=== PATIENT | male | born 1995 | race Two or more races ===

== ENCOUNTER 2024-07-29 13:22 | Emergency (ER) | payer OTHER ==
[~2024-07-29] VITALS: Ht 154.9 cm; Wt 100.0 kg
[2024-07-29 13:59] LABS: Urine Bacteria None Seen /hpf (None Seen)
--- NOTE | 2024-07-29 14:02 | ED.PDOC ---
Psychiatric HPI Comments HPI: 29Y M who presents to the ED via EMS for chief complaint of suicidal ideations. Per EMS, pt approx 30 minutes prior to ED arrival states he took 10 x 200 mg ibuprofen pills in attempt to commit suicide after argument with spouse. Pt states he has had thoughts in past to harm himself by hanging or cutting throat but states he has never prior acted on those thoughts. Pt now in the ED, denies any active suicidal or homicidal ideations. Pt denies any past psychiatric history. Pt denies any other symptoms at this time. poison control has been contacted and they recommended the following: OBTAIN BASIC LABS : -ETOH,SALICYLATE,UDS,BMP,TYLENOL 6 HOUR OBSERVATION FOR GI SYMPTOMS REEAT LABS IN 4 HOURS IF NEEDED Vitals: Temp:98.4 F Heart rate: 82 RR: 16 BP:127/70 02 sat: 100 % on room air PMH: DENIES PSH: DENIES Social history: DENIES tobacco use, endorses ETOH use, DENIES drug use Meds: DENIES Allergies: DENIES HPI: Poor Historian. Past Medcial History: Past Surgical History: REVIEW OF SYSTEMS: CONSTITUTIONAL: Denies acute: fever, diaphoresis, chills, HEAD: Denies acute: headache, photophobia Eyes: Denies acute: Double vision, vision loss, eye pain, eye discharge. EARS: Denies acute: tinnitus, hearing loss, ear discharge, ear pain, THROAT: Denies acute: sore throat, swelling, difficulty swallowing , pain with swallowing, change in voice. NECK: Denies acute: neck pain, neck swelling, stiff neck. HEART: Denies acute : chest pain, palpitations, LUNGS: Denies acute: SOB, wheezing, cough, hemoptysis ABDOMEN: Denies acute: abdominal pain, Nausea, Vomiting, diarrhea, melena , hematemesis, hematochezia SKIN: Denies acute: rash, redness, lesions, itchiness. EXTREMITIES: Denies acute: calf pain, numbness, tingling, weakness, denies pain in extremity. Denies acute: Low back pain. Neuro: Denies acute: focal neurological deficit, motor or sensory focal neurological deficit, tremors, seizure like activity, confusion, dizziness, change in mental status, loss of bowel or bladder function, cauda equina like symptoms. : Denies acute: dysuria, hematuria, flank pain, increase in urinary frequency. PSYCH: Denies acute: hallucination, , homicidal ideation. PHYSICAL EXAM: General: no acute distress, awake and alert. Head: normocephalic, atraumatic. Neck: supple, trachea is midline, no swelling. Throat: Normal phonation. Eyes:, no erythema, no purulent discharge, no proptosis, no icterus. Heart: regular rate, regular rhythm, no significant murmur appreciated. Lungs: no apparent respiratory distress, Able to speak in full sentences. No wheezing, no rhonchi, no crackles. No stridors Clear to auscultation bilaterally. Abdomen: non tender to palpation, non distended, soft, no guarding, no rebound, + bowel sounds. Neuro: Awake, Alert, oriented to name, self, situation, follows commands GCS=15. Speech is normal. Skin: no petechia, no purpura, no cyanosis, non-pale, not jaundice. Lower extremities: --no - Pitting edema no deformity, no focal swelling, no calf TTP. Makes eye contact. moves all four extremities. Face: no apparent facial droop. Chief Complaint: Suicidal Time Seen by MD: 14:01 Primary Care Provider: JANEL Reviewed Notes: Nurses Notes, Senior Environmental Practice Leader Notes, Medications Information Source: Patient Mode of Arrival: EMS Past Medical History PAST MEDICAL HISTORY: Denies Surgical History: Denies all surgeries Family History Family History: Reviewed,noncontributory to illness Social History Smoker: Non-Smoker Alcohol: Denies ETOH Use Drugs: Denies Drug Use Lives In: Home Was a procedure done? Was a procedure done?: No Psych Differential Dx Psych. Differential Dx: Anxiety, Bipolar Disorder, Depression, Hopeless, Sc hizoprenia, Suicidal OD Differential Dx: Alcohol Abuse Suicidal Differential Dx: Homicidal, Substance Abuse X-Ray, Labs, Meds, VS Vital Signs Date Time Temp Pulse Resp B/P (MAP) Pulse Ox O2 Delivery O2 Flow Rate FiO2 07/29/24 18:35 98.0 90 16 124/77 (93) 100 98.0 07/29/24 18:34 90 16 100 Room Air* 0 21 07/29/24 14:57 88 07/29/24 13:28 98.4 82 16 127/70 (89) 100 Lab Test 07/29/24 14:54 07/29/24 13:58 07/29/24 13:56 Range/Units Troponin I High Sensitivity < 3 L < 3 L </=54 ng/L Urine Color Yellow Yellow Urine Clarity Clear Clear Urine pH 6.0 5.0-9.0 Urine Specific [place] 1.033 1.001-1.035 Urine Protein Trace H Negative Urine Ketones Negative Negative Urine Blood Negative Negative /uL Urine Nitrite Negative Negative Urine Bilirubin Negative Negative Urine Urobilinogen Normal Negative mg/dL Urine Leukocyte Esterase Negative Negative /uL Urine RBC 1 0 - 3 /hpf Urine WBC 2 0 - 3 /hpf Urine Squamous Epithelial Cells Few <5 /hpf Urine Bacteria None seen None Seen /hpf Urine Mucus Few None Seen Urine Glucose Normal Normal mg/dL Urine Opiates Screen Neg NEGATIVE Urine Fentanyl Screen Neg NEGATIVE Urine Barbiturates Screen Neg NEGATIVE Urine Phencyclidine Screen Neg NEGATIVE Urine Amphetamines Screen Neg NEGATIVE Urine Benzodiazepines Screen Neg NEGATIVE Urine Cocaine Screen Neg NEGATIVE Urine Cannabinoids Screen Neg NEGATIVE White Blood Count 6.4 4.4-10.8 10^3/uL Red Blood Count 5.55 4.5-5.90 10^6/uL Hemoglobin 17.1 13.5-17.5 g/dL Hematocrit 48.5 41.0-53.0 % Mean Corpuscular Volume 87.3 80.0-100.0 fL Mean Corpuscular Hemoglobin 30.8 28.0-32.0 pg Mean Corpuscular Hemoglobin Concent 35.3 32.0-36.0 g/dL Red Cell Distribution Width 13.3 11.8-14.3 % Platelet Count 214 140-450 10^3/uL Mean Platelet Volume 7.7 6.9-10.8 fL Neutrophils (%) (Auto) 73.3 37.0-80.0 % Lymphocytes (%) (Auto) 17.5 10.0-50.0 % Monocytes (%) (Auto) 4.7 0.0-12.0 % Eosinophils (%) (Auto) 4.0 0.0-7.0 % Basophils (%) (Auto) 0.5 0.0-2.0 % Neutrophils # (Auto) 4.7 1.6-8.6 10 ^3/uL Lymphocytes # (Auto) 1.1 0.4-5.4 10 ^3/uL Monocytes # (Auto) 0.3 0-1.3 10 ^3/uL Eosinophils # (Auto) 0.3 0-0.8 10 ^3/uL Basophils # (Auto) 0 0-0.2 10 ^3/uL Nucleated Red Blood Cells 0.1 % Sodium Level 139 136-145 mmol/L Potassium Level 4.1 3.5-5.1 mmol/L Chloride Level 106 98-107 mmol/L Carbon Dioxide Level 30 20-31 mmol/L Anion Gap 3 L 5-15 Blood Urea Nitrogen 16 9-23 mg/dL Creatinine 1.14 0.700-1.30 mg/dL Glomerular Filtration Rate Calc 88 >90 mL/min BUN/Creatinine Ratio 14.0 10.0-20.0 Serum Glucose 99 74-106 mg/dL Lactic Acid Level 1.1 0.4-2.0 mmol/L Calcium Level 9.9 8.7-10.4 mg/dL Total Bilirubin 0.5 0.2-1.0 mg/dL Aspartate Amino Transferase (AST) 15 13-40 U/L Alanine Aminotransferase (ALT) 28 7-40 U/L Alkaline Phosphatase 84 46-116 U/L Total Protein 8.1 5.7-8.2 g/dL Albumin 4.7 3.2-4.8 g/dL Salicylates Level < 3.0 -30 mg/dL Acetaminophen Level < 2.0 L 10.0-20.0 UG/ML Current Medications Medications (Trade) Dose Ordered Sig/Mauricio Route Start Time Stop Time Status Last Admin Sodium Chloride 1,000 ml @ 1,000 mls/hr Q1H ONCE IV 07/29/24 13:45 07/29/24 14:44 DC 07/29/24 16:44 Pantoprazole Sodium (Protonix) 40 mg ONCE ONCE IV 07/29/24 14:30 07/29/24 14:32 DC 07/29/24 16:44 Time of 1ST Reevaluation: 14:18 (poison control has been contacted and they recommended OBTAIN BASIC LABS :-ETOH,SALICYLATE,UDS,BMP,TYLENOL6 HOUR OBSERVATION FOR GI SYMPTOMSREEAT LABS IN 4 HOURS IF NEEDED) Reevaluation 1ST: Unchanged Time of 2ND Reevaluation: 14:41 (Patient denies any complaints. Patient has been medically cleared. Still waiting for social service technician and tele psych to evaluate the patient.) Reevaluation 2ND: Resolved Time of 3RD Reevaluation: 16:13 (Case was discussed on the phone with the psychiatrist who evaluated the patient is in the camera. He diagnosed the patient with adjustment disorder with depressive node. He said there is no need for psychiatric hold and he recommends discharging the patient home. Please see Dr. Chavez's consultation instructions.) Reevaluation 3RD: Improved Patient Education/Counseling: Diagnosis, Treatment Family Education/Counseling: No Family Present Comments Patient presented with the above HPI.--SI and overdose----workup was initiated. patient was found with the above mentioned diagnosis. Poison control was consulted Patient was given: Fluids and Protonix. Patient ED course and VS have been stabilized. Patient has been reassessed in the ED and remained in a stable condition. Pertinent incidental findings were discussed with the patient and/or family. Patient/family voices understanding and is agreeable with plan. Patient has been observed in the ED adequate length of time to insure improvemen t/stability. Tele psych evaluated the patient. Please see their consultation notes. They recommend discharging the patient home. patient was discharged home in a stable condition. Patient denies any symptoms. All the reports of any imaging studies that were ordered by myself were reviewed by myself. Departure 1 Departure Time of Disposition: 14:30 Impression: Primary Impression: Suicide attempt Additional Impressions: Ibuprofen overdose Adjustment disorder with depressed mood Disposition: 01 HOME / SELF CARE / HOMELESS Admit to: Tele Condition: Stable Additional Instructions: Additional discharge instructions: You MUST follow-up with your primary care/family doctor in 1 to 2 days. If you are unable to see your primary care/family doctor, please return to our emergency room for re-assessment and re-evaluation in 1 to 2 days. Return to the emergency room here in our facility or to the nearest ER [facility] if your symptoms change or worsen. CONSULTATIONS: you MUST Follow-up for consultation as soon as possible with: DrDina-psychology/therapy/psychiatry in 1-2 days. Please call for appointment. You MUST call the consultants office yourself to make an appointment. You may need to arrange that through your insurance and/or your primary/family doctor. If you are unable to see the strategy planning consultant in 1 to 2 days, you must return to our emergency room (or any other ER of your choice) for re-assessment and re- evaluation. Adequate fluid hydration. Please see discharge instructions given to the patient by the psychiatrist. Discharged With: Self Critical Care Note Critical Care Time?: No I personally scribed for LARISA ALEJANDRA DO ([facility] on 07/29/24 at 14:02. Electronically submitted by Roberto Chisholm ([email or web address]). I personally scribed for LARISA ALEJANDRA DO ([email or web address]) on 07/29/24 at 14:19. Electronically submitted by Roberto Chisholm ([email or web address]). LARISA ALEJANDRA DO Jul 29, 2024 14:02
[2024-07-29 14:22] LABS: Basophils # (auto) 0 10 ^3/uL (0-0.2); Basophils % (auto) 0.5 % (0.0-2.0); Eosinophils # (auto) 0.3 10 ^3/uL (0-0.8); Hematocrit 48.5 % (41.0-53.0); Hemoglobin 17.1 g/dL (13.5-17.5); Lymphocytes # (auto) 1.1 10 ^3/uL (0.4-5.4); Lymphocytes % (auto) 17.5 % (10.0-50.0); Mean Corpuscular Hemoglobin 30.8 pg (28.0-32.0); Mean Corpuscular Hgb Conc. 35.3 g/dL (32.0-36.0); Mean Corpuscular Volume 87.3 fL (80.0-100.0); Monocytes # (auto) 0.3 10 ^3/uL (0-1.3); Monocytes % (auto) 4.7 % (0.0-12.0); Neutrophils # (auto) 4.7 10 ^3/uL (1.6-8.6); Neutrophils % (auto) 73.3 % (37.0-80.0); Nucleated Red Blood Cells % 0.1 %; Platelet Count (auto) 214 10^3/uL (140-450); Red Blood Cells 5.55 10^6/uL (4.5-5.90); Red Cell Distribution Width 13.3 % (11.8-14.3); White Blood Cell 6.4 10^3/uL (4.4-10.8)
[2024-07-29 14:24] LABS: Urine Blood Negative /uL (Negative); Urine Clarity Clear (Clear); Urine Color Yellow (Yellow); Urine Mucus FEW (None Seen); Urine Protein, UAD TRACE (Negative); Urine Specific Gravity 1.033 (1.001-1.035); Urine Urobilinogen Normal (Negative); Urine WBC 2 /hpf (0 - 3)
[2024-07-29 14:25] LABS: Amphetamine Screen, Urine Neg (NEGATIVE); Benzodiazephine Screen, Urine Neg (NEGATIVE)
[2024-07-29 14:26] LABS: Barbiturate Scree,Urine Neg (NEGATIVE); Cannabinoid Screen, Urine Neg (NEGATIVE); Cocaine Screen, Urine Neg (NEGATIVE); Opiate Scree,Urine Neg (NEGATIVE); Phencyclidine Screen, Urine Neg (NEGATIVE)
[2024-07-29 14:34] LABS: Alanine Aminotransferase 28 U/L (7-40); Albumin 4.7 g/dL (3.2-4.8); Alkaline Phosphatase 84 U/L (46-116); Anion Gap 3 (5-15); Aspartate Aminotransferase 15 U/L (13-40); Blood Urea Nitrogen 16 mg/dL (9-23); Calcium 9.9 mg/dL (8.7-10.4); Carbon Dioxide 30 mmol/L (20-31); Chloride 106 mmol/L (98-107); Glucose 99 mg/dL (74-106); Potassium 4.1 mmol/L (3.5-5.1); Sodium 139 mmol/L (136-145)
[2024-07-29 14:35] LABS: Acetaminophen < 2.0 UG/ML (10.0-20.0); Bilirubin, Total 0.5 mg/dL (0.2-1.0); Total Protein 8.1 g/dL (5.7-8.2)
[2024-07-29 14:40] LABS: Salicylate < 3.0 mg/dL (-30)
--- NOTE | 2024-07-29 15:04 | DVH ---
Procedure: XY CHEST PORTABLE 07/29/2024 02:38 PM Indication: SI/OD. Comparison: None TECHNIQUE: XY CHEST PORTABLE FINDINGS: Medical devices: None. Cardiomediastinal: The heart is normal in size. Pulmonary vasculature is within normal limits. Lungs: No focal pulmonary opacity is seen. The costophrenic angles are clear. No pneumothorax. Bones/soft tissues: No acute abnormality is noted. IMPRESSION: 1. No acute cardiopulmonary disease.
--- NOTE | 2024-07-29 15:48 | DVHINCON2 ---
Date of Service if different f: Jul 29, 2024 Time of Service: 15:11 Consultation ([facility]) Consulting Physician: LARISA SCOTT MD Labs Laboratory Tests Test 07/29/24 13:56 07/29/24 13:58 07/29/24 14:54 White Blood Count 6.4 10^3/uL (4.4-10.8) Red Blood Count 5.55 10^6/uL (4.5-5.90) Hemoglobin 17.1 g/dL (13.5-17.5) Hematocrit 48.5 % (41.0-53.0) Mean Corpuscular Volume 87.3 fL (80.0-100.0) Mean Corpuscular Hemoglobin 30.8 pg (28.0-32.0) Mean Corpuscular Hemoglobin Concent 35.3 g/dL (32.0-36.0) Red Cell Distribution Width 13.3 % (11.8-14.3) Platelet Count 214 10^3/uL (140-450) Mean Platelet Volume 7.7 fL (6.9-10.8) Neutrophils (%) (Auto) 73.3 % (37.0-80.0) Lymphocytes (%) (Auto) 17.5 % (10.0-50.0) Monocytes (%) (Auto) 4.7 % (0.0-12.0) Eosinophils (%) (Auto) 4.0 % (0.0-7.0) Basophils (%) (Auto) 0.5 % (0.0-2.0) Neutrophils # (Auto) 4.7 10 ^3/uL (1.6-8.6) Lymphocytes # (Auto) 1.1 10 ^3/uL (0.4-5.4) Monocytes # (Auto) 0.3 10 ^3/uL (0-1.3) Eosinophils # (Auto) 0.3 10 ^3/uL (0-0.8) Basophils # (Auto) 0 10 ^3/uL (0-0.2) Nucleated Red Blood Cells 0.1 % Sodium Level 139 mmol/L (136-145) Potassium Level 4.1 mmol/L (3.5-5.1) Chloride Level 106 mmol/L (98-107) Carbon Dioxide Level 30 mmol/L (20-31) Anion Gap 3 (5-15) Blood Urea Nitrogen 16 mg/dL (9-23) Creatinine 1.14 mg/dL (0.700-1.30) Glomerular Filtration Rate Calc 88 mL/min (>90) BUN/Creatinine Ratio 14.0 (10.0-20.0) Serum Glucose 99 mg/dL (74-106) Lactic Acid Level 1.1 mmol/L (0.4-2.0) Calcium Level 9.9 mg/dL (8.7-10.4) Total Bilirubin 0.5 mg/dL (0.2-1.0) Aspartate Amino Transf (AST/SGOT) 15 U/L (13-40) Alanine Aminotransferase (ALT/SGPT) 28 U/L (7-40) Alkaline Phosphatase 84 U/L (46-116) Total Protein 8.1 g/dL (5.7-8.2) Albumin 4.7 g/dL (3.2-4.8) Salicylates Level < 3.0 mg/dL (-30) Acetaminophen Level < 2.0 UG/ML (10.0-20.0) Urine Color Yellow (Yellow) Urine Clarity Clear (Clear) Urine pH 6.0 (5.0-9.0) Urine Specific [place] 1.033 (1.001-1.035) Urine Protein Trace (Negative) Urine Ketones Negative (Negative) Urine Blood Negative /uL (Negative) Urine Nitrite Negative (Negative) Urine Bilirubin Negative (Negative) Urine Urobilinogen Normal mg/dL (Negative) Urine Leukocyte Esterase Negative /uL (Negative) Urine RBC 1 /hpf (0 - 3) Urine WBC 2 /hpf (0 - 3) Urine Squamous Epithelial Cells Few /hpf (<5) Urine Bacteria None seen /hpf (None Seen) Urine Mucus Few (None Seen) Urine Glucose Normal mg/dL (Normal) Urine Opiates Screen Neg (NEGATIVE) Urine Fentanyl Screen Neg (NEGATIVE) Urine Barbiturates Screen Neg (NEGATIVE) Urine Phencyclidine Screen Neg (NEGATIVE) Urine Amphetamines Screen Neg (NEGATIVE) Urine Benzodiazepines Screen Neg (NEGATIVE) Urine Cocaine Screen Neg (NEGATIVE) Urine Cannabinoids Screen Neg (NEGATIVE) Appearance: Stated age Psychomotor activity: WNL Behavioral: Cooperative Eye contact: Appropriate Speech: WNL Affect: Appropriate, Mood Congruent Mood: Depressed Thought processes: Linear/Goal-directed Thought content: WNL Suicidal ideations: Absent Homicidal ideations: Absent Orientation: Person, Place, Time, Situation Memory intact: Recent Intellect: Average Abstractability: WNL Concentration: Adequate Attention: Adequate Judgement: WNL Insight: Good Vitals Vital Signs Date Time Temp Pulse Resp B/P (MAP) Pulse Ox O2 Delivery O2 Flow Rate FiO2 07/29/24 13:28 98.4 82 16 127/70 (89) 100 Treatment plan discussed: With staff Medication adjusted: No Labs ordered: No Psychotherapy provided: Yes Type: Voluntary History of Present Illness Reason for Consult : psychiatric evaluation PER ED PHYSICIAN: Ludivina Rodriguez who presents to the ED via EMS for chief complaint of suicidal ideations. Per EMS, pt approx 30 minutes prior to ED arrival states he took 10 x 200 mg ibuprofen pills in attempt to commit suicide after argument with spouse. Pt states he has had thoughts in past to harm himself by hanging or cutting throat but states he has never prior acted on those thoughts. Pt now in the ED, denies any active suicidal or homicidal ideations. Pt denies any past psychiatric history. Pt denies any other symptoms at this time. PSYCHIATRIST HPI: The patient was seen and evaluated at [facility] ED via telepsychiatry platform. 29 yr old male SINTIA for evaluation of suicidal ideation. He reported his stated she wanted to have a divorce and he was begging her not to leave. She was packing and he asked her not to leave. He said he was his fault. He said this is the first time she went to leave. He said he reacted by grabbing the ibuprofen and took about twenty tablets because he didn't want to live any more and wanted to suffer. He noted they have been about a year and six months (and together since 2018) with a four month old daughter. He hasn't been to counseling with his as she wasn't interested. He said his mother had spoken badly about his a few months so he hasn't been talking to his family for a while. He reported his called 911 when he took the pills. He denied feeling down or depressed later. He feels like he would be okay if his hadn't said she was leaving. He reported he lives with his cousin who is also familiar with his marital relationship. He plans to return to his residence and talk with his cousin about things. He stated he has no further desire to harm himself, but feels very heartbroken and down currently. He denied having suicidal and homicidal ideation and auditory and visual hallucinations. Past Psychiatric History : No hospitalizations, treatment or suicide attempts. Had been therapy twice for depression in 2015 (for six months) and a couple months in 2021. Past Medical History: none Substance use: Denied alcohol and other substance use. Social History : Lives in [place] with his , daughter and his cousin and cousin's family. 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 Raised in [place]. Diagnosis: ADJUSTMENT DISORDER WITH DEPRESSED MOOD. Formulation: This 29 yr old male appears to suffer from depression related to marital conflict and his saying she wants a divorce. He is no longer suicidal and does not meet criteria for involuntary hold. He may benefit from getting into individual therapy or into marital therapy if his agrees to it. Plan: 1. The patient is psychologically cleared for discharge. 2. Legal-voluntary. 3. Medications: No psychotropic medications indicated at this time. 4. Follow up with outpatient mental health for marital or individual therapy. He may also qualify for therapy through the [employer] employee assistance program in addition to his health insurance. 5. Please contact psychiatry if further follow up or reevaluation is desired. 6. Case discussed with ED Physician, Dr Martínez. Assessment/Diagnosis/Plan Reviewed: Labs, Medications, Previous Orders LARISA SCOTT MD Jul 29, 2024 15:12
[2024-07-29] MEDS: PANTOPRAZOLE 40 MG/10 ML VIAL INJ IV ONE (16:44)
[2024-07-29] MEDS: SODIUM CHLORIDE 0.9% 1,000 ML IV ONE (16:44)
[2024-07-29 18:34] VITALS: PULSE 90; RESP 16; O2SAT 100
[2024-07-29 18:35] VITALS: BP 124/77; PULSE 90; RESP 16; TEMP 98; O2SAT 100
--- NOTE | 2024-07-29 20:25 | ECG ---
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
== END 2024-07-29 18:38 | disposition home or self-care (01) ==
LOC: EDBD 13:22 → ER 13:22
DX: T39.312A Poisoning by propionic acid derivatives, intentional self-harm, initial encounter (principal); T14.91XA Suicide attempt, initial encounter; Z79.899 Other long term (current) drug therapy; Y92.89 Other specified places as the place of occurrence of the external cause
CPT/HCPCS: 36415; 71045; 80053; 80307; 80329; 81001; 83605; 84484; 85025; 93005; 96361; 96374; 99285; J2470; J7030